=== PATIENT | male | born 1990 | race African-American/Black ===

== ENCOUNTER 2022-01-06 13:31 | Inpatient (IN) | payer OTHER ==
[~2022-01-06] VITALS: Ht 180.3 cm; Wt 112.9 kg
[2022-01-06 17:00] VITALS: BP 131/62
[2022-01-06 20:00] VITALS: BP 126/69
[2022-01-06] MEDS: DOCUSATE SODIUM 100 MG CAPSULE PO SCH (21:00)
[2022-01-06] MEDS: SENNA 187 MG TABLET PO SCH (21:00)
[2022-01-06] MEDS: OMEPRAZOLE 20 MG CAPSULE PO SCH (21:29)
[2022-01-06] MEDS: ETHYL ALCOHOL 62% ANTISEPTIC NASAL SANITIZER 0.6 ML AMPUL NASAL SCH (21:29)
[2022-01-07 07:42] LABS: BASOPHILS % (AUTO) 0.2 % (0.0-2.0); EOSINOPHILS % (AUTO) 0.3 % (1.0-6.0); HEMOGLOBIN 15.5 g/dL (13.5-17.5); LYMPHOCYTES # (AUTO) 4.1 K/uL (1.0-4.8); LYMPHOCYTES % (AUTO) 44.2 % (22.0-44.0); MEAN CORPUSCULAR HEMOGLOBIN 29.3 pg (26.0-34.0); MEAN CORPUSCULAR HGB CONC 33.1 G/dL (31.0-37.0); MEAN CORPUSCULAR VOLUME 89 fL (80-100); MONOCYTES # (AUTO) 0.5 K/uL (0.1-1.0); NEUTROPHILS # (AUTO) 4.6 K/uL (1.8-7.7); NEUTROPHILS % (AUTO) 50.3 % (40.0-70.0); PLATELET COUNT (AUTO) 194 K/uL (150-450); RED CELL DISTRIBUTION WIDTH 13.9 % (11.5-14.5)
[2022-01-07 07:44] VITALS: BP 118/60
[2022-01-07 07:56] LABS: ALANINE AMINOTRANSFERASE 30 U/L (12-78); ALBUMIN 3.1 g/dL (3.4-5.0); ALKALINE PHOSPHATASE 74 U/L (46-116); ANION GAP 3 mmol/L (8-16); ASPARTATE AMINOTRANSFERASE 16 U/L (15-37); BILIRUBIN,TOTAL 0.4 mg/dL (0.1-1.0); CALCIUM, TOTAL 8.8 mg/dL (8.8-10.5); CARBON DIOXIDE 32 mmol/L (22-29); CHLORIDE 106 mmol/L (98-107); CREATININE 1.15 mg/dL (0.60-1.30); GLUCOSE,RANDOM 92 mg/dL (70-110); POTASSIUM 3.7 mmol/L (3.5-5.1); SODIUM SERUM 141 mmol/L (136-145); TOTAL PROTEIN, SERUM 6.2 g/dL (6.4-8.2); UREA NITROGEN, BLOOD 19 mg/dL (7-18)
[2022-01-07 07:57] LABS: GLOMERULAR FILTR. RATE CALC > 60 mL/min (>60)
[2022-01-07] MEDS: DOCUSATE SODIUM 100 MG CAPSULE PO SCH ×2 (08:13→21:26)
[2022-01-07] MEDS: POLYETHYLENE GLYCOL 3350 17 GM PACKET PO SCH (08:18)
[2022-01-07] MEDS: ETHYL ALCOHOL 62% ANTISEPTIC NASAL SANITIZER 0.6 ML AMPUL NASAL SCH ×2 (08:18→21:25)
[2022-01-07] MEDS: MULTIVITAMINS WITH MINERALS, THERAPEUTIC TABLET PO SCH (08:18)
[2022-01-07] MEDS: ENOXAPARIN SODIUM 40 MG/0.4 ML PF SYRINGE SQ SCH (08:19)
[2022-01-07 08:32] VITALS: BP 118/60
[2022-01-07 20:14] VITALS: BP 120/63
[2022-01-07] MEDS: OMEPRAZOLE 20 MG CAPSULE PO SCH (21:26)
[2022-01-07] MEDS: SENNA 187 MG TABLET PO SCH (21:26)
[2022-01-08 08:10] VITALS: BP 123/64
[2022-01-08] MEDS: POLYETHYLENE GLYCOL 3350 17 GM PACKET PO SCH (09:00)
[2022-01-08] MEDS: DOCUSATE SODIUM 100 MG CAPSULE PO SCH ×2 (09:00→20:15)
[2022-01-08] MEDS: ENOXAPARIN SODIUM 40 MG/0.4 ML PF SYRINGE SQ SCH (10:04)
[2022-01-08] MEDS: MULTIVITAMINS WITH MINERALS, THERAPEUTIC TABLET PO SCH (10:04)
[2022-01-08] MEDS: ETHYL ALCOHOL 62% ANTISEPTIC NASAL SANITIZER 0.6 ML AMPUL NASAL SCH ×2 (10:10→20:15)
[2022-01-08 20:04] VITALS: BP 131/70
[2022-01-08] MEDS: OMEPRAZOLE 20 MG CAPSULE PO SCH (20:15)
[2022-01-08] MEDS: SENNA 187 MG TABLET PO SCH (20:15)
[2022-01-09 08:05] VITALS: BP 108/61
[2022-01-09] MEDS: ENOXAPARIN SODIUM 40 MG/0.4 ML PF SYRINGE SQ SCH (08:21)
[2022-01-09] MEDS: DOCUSATE SODIUM 100 MG CAPSULE PO SCH ×2 (08:21→21:00)
[2022-01-09] MEDS: POLYETHYLENE GLYCOL 3350 17 GM PACKET PO SCH ×2 (08:21→08:28)
[2022-01-09] MEDS: MULTIVITAMINS WITH MINERALS, THERAPEUTIC TABLET PO SCH (08:21)
[2022-01-09] MEDS: ETHYL ALCOHOL 62% ANTISEPTIC NASAL SANITIZER 0.6 ML AMPUL NASAL SCH ×2 (08:26→21:08)
[2022-01-09 20:00] VITALS: BP 102/59
[2022-01-09] MEDS: SENNA 187 MG TABLET PO SCH (21:00)
[2022-01-09] MEDS: OMEPRAZOLE 20 MG CAPSULE PO SCH (21:08)
[2022-01-09] MEDS: ACETAMINOPHEN 325 MG TABLET PO PRN (21:11)
[2022-01-10] MEDS: MULTIVITAMINS WITH MINERALS, THERAPEUTIC TABLET PO SCH (08:19)
[2022-01-10] MEDS: ENOXAPARIN SODIUM 40 MG/0.4 ML PF SYRINGE SQ SCH (08:19)
[2022-01-10] MEDS: ETHYL ALCOHOL 62% ANTISEPTIC NASAL SANITIZER 0.6 ML AMPUL NASAL SCH ×2 (08:20→20:20)
[2022-01-10] MEDS: DOCUSATE SODIUM 100 MG CAPSULE PO SCH ×2 (08:20→20:24)
[2022-01-10] MEDS: POLYETHYLENE GLYCOL 3350 17 GM PACKET PO SCH (08:20)
[2022-01-10 08:39] VITALS: BP 118/64
[2022-01-10 20:00] VITALS: BP 160/83
[2022-01-10] MEDS: OMEPRAZOLE 20 MG CAPSULE PO SCH (20:19)
[2022-01-10] MEDS: ACETAMINOPHEN 325 MG TABLET PO PRN (20:20)
[2022-01-10] MEDS: SENNA 187 MG TABLET PO SCH (20:25)
[2022-01-11 07:30] VITALS: BP 105/70
[2022-01-11] MEDS: ETHYL ALCOHOL 62% ANTISEPTIC NASAL SANITIZER 0.6 ML AMPUL NASAL SCH ×2 (08:19→20:18)
[2022-01-11] MEDS: DOCUSATE SODIUM 100 MG CAPSULE PO SCH ×2 (08:20→20:18)
[2022-01-11] MEDS: MULTIVITAMINS WITH MINERALS, THERAPEUTIC TABLET PO SCH (08:21)
[2022-01-11] MEDS: ENOXAPARIN SODIUM 40 MG/0.4 ML PF SYRINGE SQ SCH (08:21)
[2022-01-11] MEDS: POLYETHYLENE GLYCOL 3350 17 GM PACKET PO SCH (08:21)
[2022-01-11 20:15] VITALS: BP 109/70
[2022-01-11] MEDS: SENNA 187 MG TABLET PO SCH (20:18)
[2022-01-11] MEDS: OMEPRAZOLE 20 MG CAPSULE PO SCH (20:18)
[2022-01-12] MEDS: MULTIVITAMINS WITH MINERALS, THERAPEUTIC TABLET PO SCH (08:14)
[2022-01-12] MEDS: ENOXAPARIN SODIUM 40 MG/0.4 ML PF SYRINGE SQ SCH (08:14)
[2022-01-12] MEDS: ETHYL ALCOHOL 62% ANTISEPTIC NASAL SANITIZER 0.6 ML AMPUL NASAL SCH ×2 (08:14→20:19)
[2022-01-12] MEDS: DOCUSATE SODIUM 100 MG CAPSULE PO SCH ×2 (08:14→20:18)
[2022-01-12] MEDS: POLYETHYLENE GLYCOL 3350 17 GM PACKET PO SCH (08:43)
[2022-01-12 08:52] VITALS: BP 118/71
[2022-01-12] MEDS: SENNA 187 MG TABLET PO SCH (20:18)
[2022-01-12 20:19] VITALS: BP 129/72
[2022-01-12] MEDS: OMEPRAZOLE 20 MG CAPSULE PO SCH (20:19)
[2022-01-12] MEDS: ACETAMINOPHEN 325 MG TABLET PO PRN (20:19)
[2022-01-13] MEDS: MULTIVITAMINS WITH MINERALS, THERAPEUTIC TABLET PO SCH (07:59)
[2022-01-13] MEDS: ENOXAPARIN SODIUM 40 MG/0.4 ML PF SYRINGE SQ SCH (07:59)
[2022-01-13] MEDS: ETHYL ALCOHOL 62% ANTISEPTIC NASAL SANITIZER 0.6 ML AMPUL NASAL SCH ×2 (07:59→20:24)
[2022-01-13 08:00] VITALS: BP 107/68
[2022-01-13] MEDS: POLYETHYLENE GLYCOL 3350 17 GM PACKET PO SCH (08:00)
[2022-01-13] MEDS: DOCUSATE SODIUM 100 MG CAPSULE PO SCH (08:00)
[2022-01-13] MEDS ORDERED: ERGOCALCIFEROL (VIT D2) 50,000 UNITS [1,250 MCG] CAPSULE PO SCH (09:00)
[2022-01-13 20:10] VITALS: BP 125/74
[2022-01-13] MEDS: ACETAMINOPHEN 325 MG TABLET PO PRN (20:23)
[2022-01-13] MEDS: OMEPRAZOLE 20 MG CAPSULE PO SCH (20:23)
[2022-01-13] MEDS: MELATONIN 5 MG TABLET PO PRN (21:33)
[2022-01-14] MEDS ORDERED: MULT-248 PO
[2022-01-14] MEDS ORDERED: ERGO500054 PO
[2022-01-14] MEDS ORDERED: OMEP20 PO
[2022-01-14] MEDS: ETHYL ALCOHOL 62% ANTISEPTIC NASAL SANITIZER 0.6 ML AMPUL NASAL SCH ×2 (07:34→21:32)
[2022-01-14] MEDS: MULTIVITAMINS WITH MINERALS, THERAPEUTIC TABLET PO SCH (07:34)
[2022-01-14 08:42] VITALS: BP 114/75
[2022-01-14 20:10] VITALS: BP 132/57
[2022-01-14] MEDS: OMEPRAZOLE 20 MG CAPSULE PO SCH (21:29)
[2022-01-14] MEDS: ACETAMINOPHEN 325 MG TABLET PO PRN (21:30)
[2022-01-14] MEDS: MELATONIN 5 MG TABLET PO PRN (21:30)
[2022-01-15] MEDS: MULTIVITAMINS WITH MINERALS, THERAPEUTIC TABLET PO SCH (08:06)
[2022-01-15] MEDS: ETHYL ALCOHOL 62% ANTISEPTIC NASAL SANITIZER 0.6 ML AMPUL NASAL SCH ×2 (08:06→21:03)
[2022-01-15 08:15] VITALS: BP 116/64
[2022-01-15 20:00] VITALS: BP 114/73
[2022-01-15] MEDS: OMEPRAZOLE 20 MG CAPSULE PO SCH (21:03)
[2022-01-15] MEDS: DOCUSATE SODIUM 100 MG CAPSULE PO PRN (21:03)
[2022-01-16] MEDS: MULTIVITAMINS WITH MINERALS, THERAPEUTIC TABLET PO SCH (08:02)
[2022-01-16] MEDS: ETHYL ALCOHOL 62% ANTISEPTIC NASAL SANITIZER 0.6 ML AMPUL NASAL SCH ×2 (08:02→20:24)
[2022-01-16 08:19] VITALS: BP 106/67
[2022-01-16] MEDS: OMEPRAZOLE 20 MG CAPSULE PO SCH (20:24)
[2022-01-16] MEDS: DOCUSATE SODIUM 100 MG CAPSULE PO PRN (20:24)
[2022-01-16 20:37] VITALS: BP 128/56
[2022-01-17 08:30] VITALS: BP 110/68
[2022-01-17] MEDS: ETHYL ALCOHOL 62% ANTISEPTIC NASAL SANITIZER 0.6 ML AMPUL NASAL SCH ×2 (08:34→20:14)
[2022-01-17] MEDS: MULTIVITAMINS WITH MINERALS, THERAPEUTIC TABLET PO SCH (08:34)
[2022-01-17 20:13] VITALS: BP 126/67
[2022-01-17] MEDS: OMEPRAZOLE 20 MG CAPSULE PO SCH (20:14)
[2022-01-18] MEDS: ETHYL ALCOHOL 62% ANTISEPTIC NASAL SANITIZER 0.6 ML AMPUL NASAL SCH (08:02)
[2022-01-18] MEDS: MULTIVITAMINS WITH MINERALS, THERAPEUTIC TABLET PO SCH (08:03)
[2022-01-18 09:16] VITALS: BP 124/73
[2022-01-18] MEDS ORDERED: ERGO500054 PO (09:24)
[2022-01-18] MEDS ORDERED: MULT-1239 PO (09:24)
== END 2022-01-18 12:45 | disposition home or self-care (01) | DRG 59 ==
LOC: 2WR 16:51
PROVIDERS: ADMIT Physical Medicine & Rehabilitation; ATTEND Physical Medicine & Rehabilitation
DX: G35 Multiple sclerosis (principal); E46 Unspecified protein-calorie malnutrition; F41.9 Anxiety disorder, unspecified; G81.94 Hemiplegia, unspecified affecting left nondominant side; E86.0 Dehydration; Z20.822 Contact with and (suspected) exposure to COVID-19; E66.9 Obesity, unspecified; E55.9 Vitamin D deficiency, unspecified; Z68.34 Body mass index [BMI] 34.0-34.9, adult
CPT/HCPCS: 80053; 85025; 87081; 92523; 93970; 97110; 97112; 97116; 97150; 97163; 97166; 97530; 97535; 99366; J1650; Q9967